=== PATIENT | male | born 1980 | race Caucasian/White ===

== ENCOUNTER 2018-02-03 06:36 | Emergency (ER) | payer SELFPAY ==
[2018-02-03] MEDS ORDERED: FAMOTIDINE 20 MG/NACL 50 ML IV ONE (06:55)
[2018-02-03] MEDS ORDERED: ONDANSETRON 4 MG/2 ML VIAL IVP ONE (06:55)
[2018-02-03] MEDS ORDERED: HYDROmorphONE/DILAUDID 2 MG/ML INJ IVP ONE (06:55)
[2018-02-03] MEDS ORDERED: NS 1,000 ML IV ONE ×2 (06:55→06:57)
[2018-02-03] MEDS ORDERED: HYDROmorphONE/DILAUDID 1 MG/ML INJ ONE (07:01)
--- NOTE | 2018-02-03 07:05 | EDPHY ---
H & P Time Seen by Provider: 02/03/18 06:51 HPI/ROS: HPI Abdominal pain, vomiting. 37-year-old male on foot. This patient has a history of chronic upper abdominal pain as well as vomiting. He has been worked up via endoscopy and colonoscopy and his words multiple blood tests. No known etiology for the symptoms to this date. He is traveling and following a band that is plain in [place]. He is from the [place] area. He reports he was up vomiting all night last night and he complains of left upper quadrant pain which is described as an aching and cramping sensation. This is the same constellation of symptoms he has had many times in the past associated with this ailment. He gives a vague history of cyclic vomiting syndrome. He has not had any surgeries on his abdomen. His last meal was yesterday. Last bowel movement yesterday. No diarrhea. No bloody or melenic stool. Denies any urinary complaints. ROS: Constitutional: No fever, no chills. No weakness. Eyes: No discharge. No changes in vision. ENT: No sore throat. No nasal congestion or rhinorrhea. Respiratory: No cough. No shortness of breath. Cardiac: No chest pain, no palpitations. Gastrointestinal: As above, no diarrhea. Genitourinary: No hematuria. No dysuria or increased frequency with urination. Musculoskeletal: No back pain. No neck pain. No myalgias or arthralgias. Skin: No rashes. Neurological: No headache. No focal weakness or altered sensation. Past medical history: As above. Social history: Nonsmoker. Here by himself. As above. Denies alcohol. Denies IV drugs and street drugs. Physical Exam: General Appearance: Alert, anxious but not in distress. This patient is responding to questions appropriately and in full sentences. This patient appears well-hydrated and well-nourished. Eyes: Pupils equal and round no pallor or injection. No lid edema, erythema or injection. Respiratory: There are no retractions, lungs are clear to auscultation with good air movement bilaterally. Cardiovascular: Regular rate and rhythm. No murmur. Gastrointestinal: Abdomen is soft with vague left upper and left mid abdominal tenderness on palpation, no masses, bowel sounds normal. No focal tenderness at McBurney's point. No Frost sign. Neurological: Motor sensory function is grossly intact. Cranial nerves are normal. Gait is normal. Skin: Warm and dry, no rashes. Musculoskeletal: Neck is supple and nontender. Extremities are symmetrical. All joints range without pain or impingement. Psychiatric: No agitation. No depression. Database: EKG: Imaging: CT scan of abdomen and pelvis with IV contrast: Essentially a negative study. Appendix well visualized and normal. No evidence of obstructive process. No evidence of diverticulitis. No other significant findings. Results were discussed with staff radiologist Dr. Jet Colvin. Procedures: Emergency department course: Triage vital signs reviewed. IV placed. He was started on IV normal saline with 1-2 L to be given over the next 1-2 hours. He was initially given 4 mg of IV Zofran, 20 mg of IV Pepcid and 0.5 mg of IV hydromorphone. He has no contraindications to Toradol/NSAIDs. This medication will be considered for pain control after verification of a normal creatinine. He consents for CT imaging to evaluate for obstructive process verses diverticulitis. 8:15 a.m., patient re-evaluated. Resting comfortably at this time. Sitting upright working on his computer. Feels much better after above pain medications. I discussed the results of his lab work as well as CT imaging. Repeat abdominal exam is soft, nontender nondistended. He states that he still does have some abdominal pain but feels better and is asking for tramadol. He has a normal creatinine. No history of peptic ulcer disease. He was given IV Toradol. He feels comfortable being discharged and I feel he is safe for discharge. Follow-up and return to emergency department precautions reviewed with him. All of his questions were answered. He was discharged from emergency department in good condition. Differential Diagnosis: The differential diagnosis on this patient includes but is not limited to cyclic vomiting syndrome, gastritis. Bowel obstruction/volvulus, diverticulitis , appendicitis, other acute surgical emergency unlikely. This represents a partial list of diagnoses considered. These considerations are based on history , physical exam, past history, reassessment and diagnostic testing. Constitutional: Initial Vital Signs Temperature (C) 36.7 C 02/03/18 07:00 Heart Rate 107 H 02/03/18 07:00 Respiratory Rate 18 02/03/18 07:00 Blood Pressure 145/120 H 02/03/18 07:00 O2 Sat (%) 96 02/03/18 07:00 O2 Delivery Mode Room Air Allergies/Adverse Reactions: hydralazine Allergy (Verified 02/03/18 07:03) Home Medications: Medication Instructions Recorded Lisinopril 02/03/18 Ondansetron Odt [Zofran Odt 4 mg 4 mg PO Q4PRN PRN #10 tab 02/03/18 (*)] Pantoprazole Sodium [Protonix 40mg 40 mg PO DAILY 02/03/18 (*)] Medical Decision Making - Data Points Laboratory Results: Laboratory Results 02/03/18 06:52 02/03/18 06:52 02/03/18 02/03/18 02/03/18 07:51 06:52 06:52 WBC 9.27 10^3/uL 10^3/uL (3.80-9.50) RBC 5.31 10^6/uL 10^6/uL (4.40-6.38) Hgb 15.8 g/dL g/dL (13.7-17.5) Hct 45.8 % % (40.0-51.0) MCV 86.3 fL fL (81.5-99.8) MCH 29.8 pg pg (27.9-34.1) MCHC 34.5 g/dL g/dL (32.4-36.7) RDW 13.3 % % (11.5-15.2) Plt Count 283 10^3/uL 10^3/uL (150-400) MPV 10.2 fL fL (8.7-11.7) Neut % (Auto) 77.4 % H % (39.3-74.2) Lymph % (Auto) 12.0 % L % (15.0-45.0) [place] % (Auto) 8.5 % % (4.5-13.0) Eos % (Auto) 0.4 % L % (0.6-7.6) Baso % (Auto) 0.8 % % (0.3-1.7) Nucleat RBC Rel Count 0.0 % % (0.0-0.2) Absolute Neuts (auto) 7.18 10^3/uL H 10^3/uL (1.70-6.50) Absolute Lymphs (auto) 1.11 10^3/uL 10^3/uL (1.00-3.00) Absolute Monos (auto) 0.79 10^3/uL 10^3/uL (0.30-0.80) Absolute Eos (auto) 0.04 10^3/uL 10^3/uL (0.03-0.40) Absolute Basos (auto) 0.07 10^3/uL 10^3/uL (0.02-0.10) Absolute Nucleated RBC 0.00 10^3/uL 10^3/uL (0-0.01) Immature Gran % 0.9 % % (0.0-1.1) Immature Gran # 0.08 10^3/uL 10^3/uL (0.00-0.10) Sodium 144 mEq/L mEq/L (135-145) Potassium 4.2 mEq/L mEq/L (3.3-5.0) Chloride 104 mEq/L mEq/L (97-110) Carbon Dioxide 24 mEq/l mEq/l (22-31) Anion Gap 16 mEq/L mEq/L (8-16) BUN 14 mg/dL mg/dL (7-23) Creatinine 1.1 mg/dL mg/dL (0.7-1.3) Estimated GFR > 60 Glucose 110 mg/dL H mg/dL (70-100) Calcium 10.7 mg/dL H mg/dL (8.5-10.4) Phosphorus 3.2 mg/dL mg/dL (2.5-4.5) Total Bilirubin 0.8 mg/dL mg/dL (0.1-1.4) Conjugated Bilirubin 0.5 mg/dL mg/dL (0.0-0.5) Unconjugated Bilirubin 0.3 mg/dL mg/dL (0.0-1.1) AST 32 IU/L IU/L (17-59) ALT 44 IU/L IU/L (21-72) Alkaline Phosphatase 64 IU/L IU/L (38-126) Total Protein 7.5 g/dL g/dL (6.3-8.2) Albumin 4.5 g/dL g/dL (3.5-5.0) Lipase 58 IU/L IU/L (23-300) Urine Color Pending Urine Appearance Pending Urine pH Pending Ur Specific [place] Pending Urine Protein Pending Urine Ketones Pending Urine Blood Pending Urine Nitrate Pending Urine Bilirubin Pending Urine Urobilinogen Pending Ur Leukocyte Esterase Pending Urine Glucose Pending Medications Given: Discontinued Medications Hydromorphone HCl (Dilaudid) 0.5 mg IVP EDNOW ONE Stop: 02/03/18 06:56 Last Admin: 02/03/18 07:10 Dose: 0.5 mg Sodium Chloride (Ns) 1,000 mls @ 0 mls/hr IV EDNOW ONE; Wide Open PRN Reason: Protocol Stop: 02/03/18 06:56 Last Admin: 02/03/18 07:07 Dose: 1,000 mls Famotidine/Sodium Chloride (Pepcid 20 Mg (Premix)) 50 mls @ 200 mls/hr IV EDNOW ONE Stop: 02/03/18 07:09 Last Admin: 02/03/18 07:08 Dose: 50 mls Sodium Chloride (Ns) 1,000 mls @ 0 mls/hr IV EDNOW ONE; Wide Open PRN Reason: Protocol Stop: 02/03/18 06:58 Last Admin: 02/03/18 07:08 Dose: 1,000 mls Ondansetron HCl (Zofran) 4 mg IVP EDNOW ONE Stop: 02/03/18 06:56 Last Admin: 02/03/18 07:09 Dose: 4 mg Departure - Departure Disposition: Home, Routine, Self-Care Clinical Impression: Abdominal pain, Vomiting Condition: Good Instructions: Acute Nausea and Vomiting (ED), Abdominal Pain (ED) Additional Instructions: Read and follow provided instructions. Follow-up with your primary care physician in 1-2 days for re-evaluation. Take medication as prescribed for nausea. Return to the emergency department for worsening symptoms or other serious concerns. Referrals: Patient,NotPresent [Unknown] - As per Instructions [facility] [Outside] - As per Instructions Prescriptions: Ondansetron Odt [Zofran Odt 4 mg (*)] 4 mg PO Q4PRN PRN #10 tab PRN Reason: For Nausea & Vomiting
[2018-02-03 07:10] LABS: PLATELET COUNT 283 10^3/uL (150-400)
[2018-02-03] MEDS ORDERED: IOPAMIDOL (ISOVUE-300) 100 ML BTL ONE (07:33)
--- NOTE | 2018-02-03 08:12 | EDPHY ---
H & P Time Seen by Provider: 02/03/18 07:00 HPI/ROS: I was not involved the care this patient. Constitutional: Initial Vital Signs Temperature (C) 36.7 C 02/03/18 07:00 Heart Rate 107 H 02/03/18 07:00 Respiratory Rate 18 02/03/18 07:00 Blood Pressure 145/120 H 02/03/18 07:00 O2 Sat (%) 96 02/03/18 07:00 O2 Delivery Mode Room Air Allergies/Adverse Reactions: hydralazine Allergy (Verified 02/03/18 07:03) Home Medications: Medication Instructions Recorded Lisinopril 02/03/18 Ondansetron Odt [Zofran Odt 4 mg 4 mg PO Q4PRN PRN #10 tab 02/03/18 (*)] Pantoprazole Sodium [Protonix 40mg 40 mg PO DAILY 02/03/18 (*)] Medical Decision Making - Data Points Laboratory Results: Laboratory Results 02/03/18 06:52 02/03/18 06:52 Medications Given: Discontinued Medications Hydromorphone HCl (Dilaudid) 0.5 mg IVP EDNOW ONE Stop: 02/03/18 06:56 Last Admin: 02/03/18 07:10 Dose: 0.5 mg Sodium Chloride (Ns) 1,000 mls @ 0 mls/hr IV EDNOW ONE; Wide Open PRN Reason: Protocol Stop: 02/03/18 06:56 Last Admin: 02/03/18 07:07 Dose: 1,000 mls Famotidine/Sodium Chloride (Pepcid 20 Mg (Premix)) 50 mls @ 200 mls/hr IV EDNOW ONE Stop: 02/03/18 07:09 Last Admin: 02/03/18 07:08 Dose: 50 mls Sodium Chloride (Ns) 1,000 mls @ 0 mls/hr IV EDNOW ONE; Wide Open PRN Reason: Protocol Stop: 02/03/18 06:58 Last Admin: 02/03/18 07:08 Dose: 1,000 mls Ketorolac Tromethamine (Toradol) 30 mg IVP EDNOW ONE Stop: 02/03/18 08:14 Last Admin: 02/03/18 08:16 Dose: 30 mg Ondansetron HCl (Zofran) 4 mg IVP EDNOW ONE Stop: 02/03/18 06:56 Last Admin: 02/03/18 07:09 Dose: 4 mg Departure - Departure Disposition: Home, Routine, Self-Care Clinical Impression: Abdominal pain, Vomiting Condition: Good Instructions: Acute Nausea and Vomiting (ED), Abdominal Pain (ED) Additional Instructions: Read and follow provided instructions. Follow-up with your primary care physician in 1-2 days for re-evaluation. Take medication as prescribed for nausea. Return to the emergency department for worsening symptoms or other serious concerns. Referrals: [facility] [Outside] - As per Instructions Patient,NotPresent [Unknown] - As per Instructions Prescriptions: Ondansetron Odt [Zofran Odt 4 mg (*)] 4 mg PO Q4PRN PRN #10 tab PRN Reason: For Nausea & Vomiting
[2018-02-03] MEDS ORDERED: KETOROLAC 30 MG/1 ML SDV IVP ONE (08:13)
[2018-02-03 08:16] VITALS: BP 131/83
== END 2018-02-03 08:21 | disposition home or self-care (01) ==
DX: R10.12 Left upper quadrant pain (principal); R11.10 Vomiting, unspecified; E86.9 Volume depletion, unspecified
CPT/HCPCS: 96365; J1170; J1885; J2405; Q9967